=== PATIENT | male | born 1975 | race Caucasian/White ===

== ENCOUNTER 2022-12-23 06:21 | Emergency (ER) | payer OTHER ==
[~2022-12-23] VITALS: Ht 172.7 cm; Wt 84.0 kg
[2022-12-23 06:43] VITALS: BP 132/78; PULSE 88; RESP 18; TEMP 98.2; O2SAT 100
[2022-12-23] MEDS ORDERED: IBUPROFEN 600MG TABLET PO STA (06:49)
[2022-12-23 08:20] LABS: BASOPHILS % 0.2 % (0.0-2.0); DIFFERENTIAL COMMENT 0; EOSINOPHILS % 2.3 % (0.0-5.0); HEMATOCRIT. 40.3 % (42.0-52.0); MEAN CORPUSCULAR HEMOGLOBIN 27.6 pg (28.0-32.0); MEAN CORPUSCULAR HGB CONC 34.7 g/dL (31.0-37.0); MEAN CORPUSCULAR VOLUME 79.5 fL (80.0-94.0); MEAN PLATELET VOLUME 7.8 fl (7.4-10.4); MONOCYTES % 9.7 % (2.0-8.0); NEUTROPHILS % 55.8 % (40.0-76.0); PLATELET 236 x1000/uL (130-400); RED BLOOD CELL COUNT 5.06 mill/uL (4.7-6.1); RED CELL DISTRIBUTION WIDTH 13.3 % (11.6-14.6); WHITE BLOOD COUNT 7.3 x1000/uL (4.5-11.0)
[2022-12-23 08:34] LABS: CHLORIDE 109 mEq/L (98-107); INDEX HEMOLYSI 1 (1-3); INDEX ICTERIC 1 (1-4); INDEX LIPEMIC 1 (1-3); POTASSIUM 3.3 mEq/L (3.5-5.1); SODIUM 141 mEq/L (136-145)
[2022-12-23 08:48] LABS: ALANINE AMINOTRANSFERASE 51 IU/L (13-61); ALBUMIN 3.6 g/dL (3.4-5.0); ASPARTATE AMINOTRANSFERASE 28 IU/L (15-37); BILIRUBIN TOTAL 0.8 mg/dL (0.1-1.0); CALCIUM 9.2 mg/dL (8.5-10.1); CARBON DIOXIDE 28 mEq/L (21-32); CREATINE KINASE 190 IU/L (39-308); CREATININE 0.5 mg/dL (0.6-1.3); ETHANOL BLOOD < 10 mg/dL (<10); GLUCOSE 129 mg/dL (70-105); PROTEIN TOTAL 7.4 g/dL (6.0-8.3); UREA NITROGEN BLOOD 12 mg/dL (7-21)
== END 2022-12-23 08:35 | disposition left against medical advice (07) ==
LOC: ER 06:21
DX: R53.1 Weakness (principal); R42 Dizziness and giddiness; M79.10 Myalgia, unspecified site
CPT/HCPCS: 36415; 80053; 80320; 82550; 85025; 99283; G0480

== ENCOUNTER 2023-06-08 03:01 | Inpatient (IN) | payer OTHER ==
[~2023-06-08] VITALS: Ht 177.8 cm; Wt 81.6 kg
[2023-06-08 03:48] LABS: BASOPHILS % 0.3 % (0.0-2.0); DIFFERENTIAL COMMENT 0; HEMATOCRIT. 38.7 % (42.0-52.0); HEMOGLOBIN. 13.3 g/dL (14.0-18.0); LYMPHOCYTES % 36.7 % (20.0-50.0); MEAN CORPUSCULAR HEMOGLOBIN 26.2 pg (28.0-32.0); MEAN CORPUSCULAR HGB CONC 34.4 g/dL (31.0-37.0); MEAN CORPUSCULAR VOLUME 76.2 fL (80.0-94.0); MEAN PLATELET VOLUME 7.4 fl (7.4-10.4); MONOCYTES % 11.2 % (2.0-8.0); NEUTROPHILS % 49.8 % (40.0-76.0); PLATELET 254 x1000/uL (130-400); RED BLOOD CELL COUNT 5.08 mill/uL (4.7-6.1); WHITE BLOOD COUNT 6.9 x1000/uL (4.5-11.0)
[2023-06-08 04:02] LABS: INR 0.9; PARTIAL THROMBOPLASTIN TIME 27.1 sec (23.4-31.0); PROTHROMBIN TIME 10.5 sec (9.6-11.0)
[2023-06-08 04:10] LABS: ALANINE AMINOTRANSFERASE 31 IU/L (10-49); ALBUMIN 3.9 g/dL (3.2-4.8); ASPARTATE AMINOTRANSFERASE 19 IU/L (<34); BILIRUBIN TOTAL 0.4 mg/dL (0.1-1.0); CARBON DIOXIDE 26 mEq/L (21-32); CHLORIDE 107 mEq/L (98-107); CREATININE 0.6 mg/dL (0.6-1.3); GLUCOSE 132 mg/dL (70-105); PROTEIN TOTAL 6.6 g/dL (6.0-8.3); SODIUM 141 mEq/L (136-145); THYROID STIMULATING HORMONE < 0.10 uIU/mL (0.55-4.78); TROPONIN I HIGH SENSITIVITY 37 ng/L (3.0-53); UREA NITROGEN BLOOD 17 mg/dL (9-23)
[2023-06-08] MEDS: SODIUM CHLORIDE 0.9% 1,000 ML IV ONE (04:12)
[2023-06-08] MEDS ORDERED: KCL 20MEQ/100ML PREMIX 100 ML IV ONE (04:45)
[2023-06-08] MEDS: KCL 20MEQ/100ML PREMIX 100 ML IV ONE (05:35)
[2023-06-08] MEDS: MAGNESIUM 1 G PREMIX 100 ML IV ONE (06:08)
[2023-06-08] MEDS: KCL 20MEQ/100ML PREMIX 100 ML IV NR (10:08)
[2023-06-09] VITALS (8 sets, daily range): BP systolic 112–137; BP diastolic 61–84; PULSE 86–100; RESP 12–24; TEMP 97.7–98.7; O2SAT 97
[2023-06-09] MEDS ORDERED: METH-372 PO (02:53)
[2023-06-09] MEDS ORDERED: ACETAMINOPHEN 325MG TABLET PO PRN (03:00)
[2023-06-09] MEDS ORDERED: ONDANSETRON HCL 4MG/2ML INJ IV PRN (03:00)
[2023-06-09] MEDS: METHIMAZOLE 5MG TABLET PO SCH (08:19)
[2023-06-09] MEDS: ENOXAPARIN 40MG/0.4ML SYR SUBCUT SCH (08:20)
[2023-06-09] MEDS: SODIUM CHLORIDE 0.9% 1,000 ML IV SCH (08:20)
[2023-06-09 10:27] LABS: ALANINE AMINOTRANSFERASE 33 IU/L (10-49); ALBUMIN 3.7 g/dL (3.2-4.8); ASPARTATE AMINOTRANSFERASE 27 IU/L (<34); BILIRUBIN TOTAL 0.5 mg/dL (0.1-1.0); CALCIUM 9.1 mg/dL (8.7-10.4); CARBON DIOXIDE 25 mEq/L (21-32); CHLORIDE 107 mEq/L (98-107); CREATININE 0.5 mg/dL (0.6-1.3); GLUCOSE 157 mg/dL (70-105); POTASSIUM 3.7 mEq/L (3.5-5.1); PROTEIN TOTAL 6.2 g/dL (6.0-8.3); SODIUM 140 mEq/L (136-145); UREA NITROGEN BLOOD 12 mg/dL (9-23)
[2023-06-09 22:38] LABS: PHOSPHORUS 5.1 mg/dL (2.5-4.9)
== END 2023-06-09 23:26 | disposition left against medical advice (07) | DRG 641 ==
LOC: ER 03:19 → EDBEDREQ 05:44 → 3WST 06-09 01:05
PROVIDERS: ADMIT Internal Medicine; ATTEND Internal Medicine
DX: E87.6 Hypokalemia (principal); E05.00 Thyrotoxicosis with diffuse goiter without thyrotoxic crisis or storm; Z91.148 Patient's other noncompliance with medication regimen for other reason; Z80.8 Family history of malignant neoplasm of other organs or systems; Z63.4 Disappearance and death of family member; Z90.49 Acquired absence of other specified parts of digestive tract; Z53.29 Procedure and treatment not carried out because of patient's decision for other reasons
CPT/HCPCS: 36415; 71045; 80053; 83520; 83735; 83880; 84100; 84439; 84443; 84481; 84484; 85025; 87426; 93005; 93970; 99285; J1650; J3475; J3480; J7030